=== PATIENT | male | born 2000 | race Caucasian/White ===

== ENCOUNTER 2023-07-22 19:05 | Emergency (ER) | payer SELFPAY ==
[2023-07-22] MEDS ORDERED: HYDROcodone/Acetaminophen 10/325 mg Tablet ONE (20:46)
[2023-07-22] MEDS ORDERED: Bacitracin 1 PK ONE (21:03)
== END 2023-07-22 21:46 | disposition home or self-care (01) ==
LOC: ERS 19:05
DX: S61.411A Laceration without foreign body of right hand, initial encounter (principal); W26.9XXA Contact with unspecified sharp object(s), initial encounter